=== PATIENT | female | born 1940 | race Caucasian/White ===

== ENCOUNTER 2017-04-15 12:52 | Observation (INO) | payer MEDICARE ==
[2017-04-15] MEDS ORDERED: Lopressor 25MG Tab PO ONE (13:24)
[2017-04-15] MEDS ORDERED: Zofran 4 MG/2 ML VIAL IV ONE (13:24)
[2017-04-15] MEDS ORDERED: NITRO-BID 2% UD PACKETS TOP ONE (13:24)
[2017-04-15] MEDS ORDERED: Sodium Chloride 0.9% 1000 ML 1,000 ML IV SCH (13:30)
[2017-04-15] MEDS ORDERED: Zofran 4 MG/2 ML VIAL ONE (13:31)
[2017-04-15] MEDS ORDERED: Lopressor 25MG Tab ONE (13:32)
[2017-04-15] MEDS ORDERED: Sodium Chloride 0.9% 1000 ML 1,000 ML ONE (13:32)
[2017-04-15] MEDS ORDERED: NITRO-BID 2% UD PACKETS ONE (13:32)
--- NOTE | 2017-04-15 13:32 | ERPHSYRPT ---
- History of Present Illness Time Seen by Provider: 04/15/17 12:57 Source: patient, family Exam Limitations: no limitations Patient Subjective Stated Complaint: blood pressure high at home. having a h/a and some dizziness. Triage Nursing Assessment: ambulated to room per self. skin w/d, color normal, resp easy. Physician History: peyman awoke not feeleing weel; has a non-specific VINSON; some nausea; and light headed; she has been under a lot of stress; no recent changes in meds; took meds this am; it was elevated 220;96; ususally 170 86 Timing/Duration: today, hour(s) (3), gradual onset, worse Severity: moderate Modifying Factors: Improves With: nothing Associated Symptoms: nausea, headaches, other (light headed) Allergies/Adverse Reactions: No Known Drug Allergies Allergy (Verified 04/15/17 13:13) Home Medications: Albuterol Sulfate [Proair Hfa] 8.5 gm IH Q6H PRN PRN 04/15/17 [History] Atorvastatin Calcium 10 mg PO DAILY 04/15/17 [History] Citalopram Hydrobromide 20 mg* [ceLEXa 20 MG] 10 mg PO DAILY 04/15/17 [ History] Gabapentin [Neurontin] 100 mg PO TID 04/15/17 [History] Losartan Potassium 50 mg [Cozaar 50 MG] 50 mg PO DAILY 04/15/17 [History] Meloxicam 15 mg [Meloxicam 15 MG] 15 mg PO DAILY 04/15/17 [History] Hx Tetanus, Diphtheria Vaccination/Date Given: No Hx Influenza Vaccination/Date Given: Yes Hx Pneumococcal Vaccination/Date Given: Yes - Review of Systems Constitutional: No Symptoms Eyes: No Symptoms, No Discharge, No Eye Pain, No Eye Redness Ears, Nose, & Throat: No Symptoms Respiratory: No Cough, No Dyspnea, No Wheezing Cardiac: No Chest Pain, No Palpitations, No Syncope Abdominal/Gastrointestinal: Nausea, No Abdominal Pain, No Vomiting, No Diarrhea Genitourinary Symptoms: No Symptoms Musculoskeletal: No Symptoms Skin: No Symptoms Neurological: Dizziness, Headache, No Paralysis Psychological: Anxiety, No Suicidal Ideations, No Homicidal Ideations Endocrine: No Symptoms Hematologic/Lymphatic: No Symptoms Immunological/Allergic: No Symptoms - Past Medical History Pertinent Past Medical History: Yes Cardiac History: High Cholesterol, Hypertension Respiratory History: COPD, Pneumonia Musculoskeletal History: Arthritis GI Medical History: Gallbladder Disease - Past Surgical History Past Surgical History: Yes Gastrointestinal: Cholecystectomy - Social History Smoking Status: Former smoker Exposure to second hand smoke: No Alcohol Use: None Drug Use: none Patient Lives Alone: No Significant Family History: heart disease, hypertension - Female History Hx Now: No - Nursing Vital Signs Nursing Vital Signs: Initial Vital Signs Temperature 97.8 F 04/15/17 12:57 Pulse Rate 83 04/15/17 12:57 Respiratory Rate 18 04/15/17 12:57 Blood Pressure 228/92 04/15/17 12:57 O2 Sat by Pulse Oximetry 95 04/15/17 12:57 Pain Scale Pain Intensity 0 - Physical Exam General Appearance: mild distress, alert, obese Eye Exam: PERRL/EOMI, eyes nml inspection, other (no papiledema), No photophobia Ears, Nose, Throat Exam: normal ENT inspection, TMs normal, pharynx normal, moist mucous membranes Neck Exam: normal inspection, non-tender, supple, full range of motion, No meningismus, No JVD Respiratory Exam: normal breath sounds, lungs clear, airway intact, No chest tenderness, No respiratory distress Cardiovascular Exam: regular rate/rhythm, normal heart sounds, normal peripheral pulses, capillary refill <2 sec, No murmur, No edema Gastrointestinal/Abdomen Exam: soft, normal bowel sounds, No tenderness, No guarding, No rebound, No organomegaly Pelvic Exam: deferred Rectal Exam: deferred Back Exam: normal inspection, normal range of motion, No CVA tenderness, No vertebral tenderness, No rash Extremity Exam: normal inspection, normal range of motion, No marquis's sign, No pedal edema Neurologic Exam: alert, oriented x 3, cooperative, machine pack assembler II-XII nml as tested, normal mood/affect, nml cerebellar function, nml station & gait Skin Exam: normal color, warm, dry, No rash, No cyanosis SpO2 Interpretation: normal SpO2: 95 Oxygen Delivery: Room Air - Course Nursing assessment & vital signs reviewed: Yes EKG Interpreted by Me: RATE (82), Sinus Rhythm, NORMAL AXIS, NORMAL INTERVALS, NORMAL QRS, Non-specific ST Changes (occasional PVC; poor R wave progression V1 - V3; left ventricular hypertrophy) Rhythm Strip: Rate (82), Normal Sinus Rhythm - Radiology Exams Chest X-ray Interpretation: Reviewed by me, Teleradiologist Report, No Pneumonia, No Pneumothorax, Nml Heart Size, No Infiltrates, Nml Mediastinum Ordered Tests: Active Orders 24 hr Category Date Time Status Bedrest with BRP/BSC ROUTINE Activity 04/15/17 14:28 Ordered Admission/Status Order ROUTINE Care 04/15/17 14:28 Ordered Call Admit Doctor for Orders ROUTINE Care 04/15/17 14:28 Ordered Animal Physiologist STAT Care 04/15/17 13:25 Active Code Status Order ROUTINE Care 04/15/17 14:28 Ordered EKG-ER Only STAT Care 04/15/17 13:24 Active Fall Protocol ROUTINE Care 04/15/17 14:31 Ordered IV Care Q6H Care 04/15/17 14:28 Ordered IV Insertion STAT Care 04/15/17 13:24 Active Implement Chest Pain Pathway ROUTINE Care 04/15/17 14:28 Ordered Pulse Oximetry (ED) STAT Care 04/15/17 13:24 Active Alvino May ROUTINE Care 04/15/17 14:28 Ordered Telemetry ROUTINE Care 04/15/17 14:28 Ordered Weight,Daily 0600 Care 04/15/17 14:28 Ordered Cardiac Diet Diet 04/15/17 Dinner Ordered CHEST 1 VIEW (PORTABLE) Stat Exams 04/15/17 13:25 Completed CBC W DIFF Stat Lab 04/15/17 13:24 Completed CMP Stat Lab 04/15/17 13:24 Completed LIPID PROFILE AM.LAB Lab 04/16/17 04:00 Ordered NT PRO BNP Stat Lab 04/15/17 13:24 Completed PROTIME WITH INR Stat Lab 04/15/17 13:24 Completed TROPONIN Q3H Lab 04/15/17 13:30 Completed TROPONIN Q3H Lab 04/15/17 16:30 Ordered TROPONIN Q3H Lab 04/15/17 19:30 Ordered TROPONIN Q3H Lab 04/15/17 22:30 Ordered TROPONIN Q3H Lab 04/16/17 01:30 Ordered EKG Q8HX2,QAMX3,PRN RT 04/15/17 14:28 Ordered Pulse Oximetry Q4H RT 04/15/17 14:28 Ordered Transfer Order Routine Transfer 04/15/17 Ordered Medication Summary Generic Name Dose Route Start Last Admin Trade Name Freq PRN Reason Stop Dose Admin Sodium Chloride 1,000 mls @ 50 mls/hr 04/15/17 13:30 04/15/17 13:44 Sodium Chloride 0.9% 1000 Ml IV 05/15/17 13:29 50 mls/hr .Q20H NANCY Administration Discontinued Medications Generic Name Dose Route Start Last Admin Trade Name Freq PRN Reason Stop Dose Admin Lorazepam 1 mg 04/15/17 13:33 04/15/17 13:38 Ativan 1 Mg PO 04/15/17 13:34 1 mg STAT ONE Administration Lorazepam Confirm 04/15/17 13:35 Ativan 1 Mg Administered 04/15/17 13:36 Dose 1 mg .ROUTE .STK-MED ONE Metoprolol Tartrate 50 mg 04/15/17 13:24 04/15/17 13:35 Lopressor 25mg Tab PO 04/15/17 13:25 50 mg STAT ONE Administration Metoprolol Tartrate Confirm 04/15/17 13:32 Lopressor 25mg Tab Administered 04/15/17 13:33 Dose 50 mg .ROUTE .STK-MED ONE Nitroglycerin 1 gm 04/15/17 13:24 04/15/17 13:36 Nitro-Bid 2% Ud Packets TOP 04/15/17 13:25 1 gm STAT ONE Administration Nitroglycerin Confirm 04/15/17 13:32 Nitro-Bid 2% Ud Packets Administered 04/15/17 13:33 Dose 1 gm .ROUTE .STK-MED ONE Ondansetron HCl 4 mg 04/15/17 13:24 04/15/17 13:35 Zofran 4 Mg/2 Ml Vial IV 04/15/17 13:25 4 mg STAT ONE Administration Ondansetron HCl Confirm 04/15/17 13:31 Zofran 4 Mg/2 Ml Vial Administered 04/15/17 13:32 Dose 4 mg .ROUTE .STK-MED ONE Lab/Rad Data: Laboratory Result Diagrams 04/15/17 13:24 04/15/17 13:24 Laboratory Results 04/15/17 04/15/17 04/15/17 Range/Units 13:30 13:24 13:24 WBC (4.0-10.5) K/mm3 RBC (4.1-5.4) M/mm3 Hgb (12.0-16.0) gm/dl Hct (35-47) % MCV (78-100) fl MCH (26-32) pg MCHC (32-36) g/dl RDW (11.5-14.0) % Plt Count (150-450) K/mm3 MPV (6-9.5) fl Gran % (36.0-66.0) % Lymphocytes % (24.0-44.0) % Monocytes % (0.0-12.0) % Eosinophils % (0.00-5.0) % Basophils % (0.0-0.4) % Basophils # (0-0.4) INR 1.06 (0.8-3.0) Sodium 143 (136-145) mEq/L Potassium 4.1 (3.5-5.1) mEq/L Chloride 104 (98-107) mEq/L Carbon Dioxide 31.1 (21-32) mEq/L Anion Gap 12.0 (5-15) MEQ/L BUN 12 (9-20) mg/dL Creatinine 0.74 (0.55-1.30) mg/dl Estimated GFR > 60 ML/MIN Glucose 103 (70-110) MG/DL Calcium 10.4 H (8.5-10.1) mg/dL Total Bilirubin 0.40 (0.2-1.0) mg/dL AST 30 (15-37) U/L ALT 48 (12-78) U/L Alkaline Phosphatase 96 (46-116) U/L Troponin I 0.120 H* (0.000-0.056) ng/ml NT-Pro-B Natriuret Pep 908 H (0-450) pg/ml Serum Total Protein 8.1 (6.4-8.2) gm/dL Albumin 4.3 (3.4-5.0) g/dL 04/15/17 Range/Units 13:24 WBC 5.5 (4.0-10.5) K/mm3 RBC 4.94 (4.1-5.4) M/mm3 Hgb 14.7 (12.0-16.0) gm/dl Hct 45.5 (35-47) % MCV 92.1 (78-100) fl MCH 29.8 (26-32) pg MCHC 32.3 (32-36) g/dl RDW 14.1 H (11.5-14.0) % Plt Count 104 L (150-450) K/mm3 MPV 10.5 H (6-9.5) fl Gran % 64.6 (36.0-66.0) % Lymphocytes % 21.8 L (24.0-44.0) % Monocytes % 8.0 (0.0-12.0) % Eosinophils % 5.1 H (0.00-5.0) % Basophils % 0.5 (0.0-0.4) % Basophils # 0.03 (0-0.4) INR (0.8-3.0) Sodium (136-145) mEq/L Potassium (3.5-5.1) mEq/L Chloride (98-107) mEq/L Carbon Dioxide (21-32) mEq/L Anion Gap (5-15) MEQ/L BUN (9-20) mg/dL Creatinine (0.55-1.30) mg/dl Estimated GFR ML/MIN Glucose (70-110) MG/DL Calcium (8.5-10.1) mg/dL Total Bilirubin (0.2-1.0) mg/dL AST (15-37) U/L ALT (12-78) U/L Alkaline Phosphatase (46-116) U/L Troponin I (0.000-0.056) ng/ml NT-Pro-B Natriuret Pep (0-450) pg/ml Serum Total Protein (6.4-8.2) gm/dL Albumin (3.4-5.0) g/dL reviewed - Progress Progress: improved (after meds), re-examined (after meds) Progress Note: 04/15/17 13:33 family at bedside; meds given; ekg done; will monitor and recheck; labs and xr pending 04/15/17 13:52 medicated; resting comfortably with family at bedside; cbc and INR and cxr ok; EKG nsr with pvc and NSSTTW changes 04/15/17 14:10 rechecked and patietn is asymptomatic now; BP in normal range for her; Bs, renal fx and lytes all wnl; liver fx ok; troponin still pending; will monitor and recheck; she has an appt with her lmd at 330 today 04/15/17 14:26 tropoonin came back elevated at 0.120; Dr Aguirre consulted and will admit and ro non-stemi LA; patient and family notified Discussed with : Triston (consulted and will admit) Will see patient in: hospital (observation) Counseled pt/family regarding: lab results, diagnosis, need for follow-up, rad results - Departure Time of Disposition: 14:27 Departure Disposition: Observation Clinical Impression: Hypertension, Elevated troponin I level Condition: Serious Critical Care Time: Yes Critical Care Time(excluding separately billable procedures): 30-74 minutes Referrals: KORY ISBELL [Primary Care Provider] - PRANEETH AGUIRRE [ACTIVE STAFF] -
[2017-04-15] MEDS ORDERED: Ativan 1 MG PO ONE (13:33)
[2017-04-15] MEDS ORDERED: Ativan 1 MG ONE (13:35)
[2017-04-15 13:37] LABS: BASOPHIL % 0.5 % (0.0-0.4); Eosinophil % 5.1 % (0.00-5.0); Granulocytes % 64.6 % (36.0-66.0); INR 1.06 (0.8-3.0); Lymphocytes % 21.8 % (24.0-44.0); Mean Cell Volume 92.1 fl (78-100); Mean Corpuscular Hemoglobin 29.8 pg (26-32); Mean Platelet Volume 10.5 fl (6-9.5); PROTIME 11.8 SECONDS (9.95-12.35); Platelet Count 104 K/mm3 (150-450); Red Blood Count 4.94 M/mm3 (4.1-5.4); Red Cell Distribution Width 14.1 % (11.5-14.0); White Blood Count 5.5 K/mm3 (4.0-10.5)
--- NOTE | 2017-04-15 13:48 | XRAY ---
Indication: Elevated blood pressure. Comparison: October 22, 2016. Portable chest again hyperinflated. No focal infiltrate, consolidation, or large effusion. Heart is not enlarged. Vascularity normal. Bony thorax intact again with mild osteopenia and degenerative changes. Impression: Nonacute hyperinflated chest
[2017-04-15 13:51] LABS: ALBUMIN 4.3 g/dL (3.4-5.0); ALKALINE PHOSPHATASE 96 U/L (46-116); BLOOD UREA NITROGEN 12 mg/dL (9-20); CHLORIDE 104 mEq/L (98-107); Carbon Dioxide 31.1 mEq/L (21-32); Glucose 103 MG/DL (70-110); Potassium 4.1 mEq/L (3.5-5.1); SGOT/AST 30 U/L (15-37); SGPT/ALT 48 U/L (12-78); SODIUM 143 mEq/L (136-145); Total Protein 8.1 gm/dL (6.4-8.2)
[2017-04-15] MEDS ORDERED: MILK OF MAGNESIA 30 ML PO PRN (14:28)
[2017-04-15] MEDS ORDERED: Zofran 4 MG/2 ML VIAL IV PRN (14:28)
[2017-04-15] MEDS ORDERED: MAALOX ES 30 ML UNIT DOSE PO PRN (14:28)
[2017-04-15] MEDS ORDERED: TYLENOL 325 MG PO PRN (14:28)
[2017-04-15] MEDS ORDERED: Senokot-S Tablet PO PRN (14:28)
[2017-04-15] MEDS ORDERED: PROVENTIL COMMON CANISTER IH PRN (15:17)
[2017-04-15] MEDS: ENOXAPARIN SODIUM SQ SCH (16:19)
[2017-04-15] MEDS: ANTIVERT 25 MG PO SCH ×2 (18:11→23:23)
[2017-04-15] MEDS: Neurontin 100 MG PO SCH ×2 (18:11→23:22)
[2017-04-15] MEDS: Protonix 40MG Tablet PO SCH (18:11)
[2017-04-15] MEDS: NITRO-BID 2% UD PACKETS TOP SCH (21:17)
[2017-04-15] MEDS: Pepcid 20 MG PO SCH (21:21)
[2017-04-15] MEDS ORDERED: Ocuvite Tablet PO SCH (22:00)
[2017-04-15] MEDS: Lopressor 50 MG PO SCH (23:22)
[2017-04-16] MEDS: NITRO-BID 2% UD PACKETS TOP SCH ×2 (05:29→14:53)
[2017-04-16] MEDS: ENOXAPARIN SODIUM SQ SCH (08:41)
[2017-04-16] MEDS: ANTIVERT 25 MG PO SCH ×2 (08:41→14:54)
[2017-04-16] MEDS: Pepcid 20 MG PO SCH (08:41)
[2017-04-16] MEDS: Neurontin 100 MG PO SCH ×2 (08:41→14:53)
[2017-04-16] MEDS: Protonix 40MG Tablet PO SCH (08:41)
[2017-04-16] MEDS: Lopressor 50 MG PO SCH (08:41)
[2017-04-16] MEDS: Ocuvite Tablet PO SCH ×2 (08:41→11:13)
--- NOTE | 2017-04-16 09:04 | XRAY ---
Indication: Hypertension and vertigo. Two-dimensional sonogram and color Doppler imaging of the carotid arteries of the neck performed. Comparison: None Examination of the right carotid circulation demonstrates minimal eccentric soft plaquing in the common carotid artery and mild/moderate calcified plaquing at the level of the bulb extending into the origin and proximal internal and external carotid arteries. PSV of the CCA is 80 cm/s. PSV of the ICA is 111 cm/s. ICA/CCA ratio is 1.4. Normal antegrade vertebral artery flow. Examination of the left carotid circulation mild eccentric calcified plaquing in the common carotid artery and mild calcified plaquing at the level of the bulb. PSV of the CCA is 90 cm/s. PSV of the ICA is 102 cm/s. ICA/CCA ratio is 1.1. Normal antegrade vertebral artery flow. Impression: Scattered arteriosclerotic disease, right greater than left. Velocity measurements and ratios are negative for hemodynamically significant flow-limiting stenosis.
[2017-04-16] MEDS ORDERED: Zocor 10MG PO SCH (10:00)
[2017-04-16] MEDS ORDERED: ECOTRIN 81 MG PO SCH (10:00)
[2017-04-16] MEDS ORDERED: Cozaar 50 MG PO SCH (10:00)
[2017-04-16] MEDS ORDERED: Ecotrin 325 MG PO SCH (10:00)
[2017-04-16] MEDS ORDERED: ceLEXa 20 MG PO SCH (10:00)
[2017-04-16] MEDS ORDERED: NON-FORMULARY ITEM (Atorvastatin Calcium [Atorvastatin Calcium] 10 MG) PO SCH (10:00)
[2017-04-16 16:46] VITALS: BP 188/79; PULSE 60
[2017-04-16 16:55] VITALS: O2SAT 94
[2017-04-16] MEDS ORDERED: Ocuvite Tablet PO SCH (22:00)
--- NOTE | 2017-04-17 15:22 | ECHO ---
Transthoracic echocardiographic examination and color Doppler was done on 04/15/2017. INDICATION: Hypertension, hyperlipidemia, chest pains. IMPRESSION: 1) NO REGIONAL WALL MOTION ABNORMALITY. ESTIMATED GLOBAL LEFT VENTRICULAR EJECTION FRACTION BETWEEN 60 AND 70%. 2) MILD MITRAL REGURGITATION. 3) MILD AORTIC REGURGITATION. 4) MILD TRICUSPID REGURGITATION. RIGHT VENTRICULAR SYSTOLIC PRESSURE OF 39 MM OF MERCURY. 5) LEFT VENTRICULAR HYPERTROPHY. 6) LEFT VENTRICULAR DIASTOLIC DYSFUNCTION. The left ventricle is visualized and demonstrated adequate motion of all the segments. Estimated global left ventricular ejection fraction between 60-70%. There is mild left ventricular hypertrophy. The mitral valve is seen and this opens adequately. There is mild mitral regurgitation. Left atrium is normal. Tissue Doppler study of lateral mitral annulus suggestive of a left ventricular diastolic dysfunction. The aortic valve is sclerotic. The peak gradient across the aortic valve is 14 mm of Mercury. There is also associated mild aortic regurgitation. The right side chambers are within normal. There is mild tricuspid regurgitation. The right ventricular systolic pressure of 39 mm of Mercury.
--- NOTE | 2017-04-23 13:09 | SSS ---
DISCHARGE DIAGNOSES: 1) VERTIGO. 2) ACCELERATED HYPERTENSION. 3) ELEVATED TROPONINS. CONSULTS: Cardiology consultation was requested. The patient was transferred to [facility]. HISTORY: The patient is a 77 year-old white female who presented to the emergency room where initial complaints were dizziness after which the patient checked her blood pressure at home and found it to be quite high. She became quite concerned and presented herself to the emergency room where on evaluation she was found to have elevated troponins. The patient had denied any chest pain although she did report that she was having some indigestion problems off and on over the past couple of weeks. The patient is normally treated for hypertension at home. Otherwise she had concerns of gastroesophageal reflux disease. PHYSICAL EXAMINATION: Revealed a well nourished, well developed 77 year-old white female in no obvious distress. HEENT: Normocephalic, atraumatic. Pupils equal round reactive to light. Extraocular movements intact. There was no nystagmus noted. Oropharynx is pink and moist. NECK: Supple without lymphadenopathy, thyromegaly, JVD or bruits. CHEST: Clear to auscultation. HEART: Regular rate and rhythm without murmurs, rubs or gallops. ABDOMEN: Soft, nontender, nondistended without hepatosplenomegaly or masses. EXTREMITIES: Without clubbing, cyanosis or edema. NEUROLOGIC: The patient is alert and oriented x3. No focal deficits were noted. LAB DATA AND TESTS: Laboratory studies did reveal the patient to have persistently elevated troponins at approximately 0.106. There was another measured at 0.109. HOSPITAL COURSE: Cardiology consultation was requested. The tele-cardiology machine is still down. Upon consultation with the recooperer verbally, they wished for her to be transferred to [facility] for further evaluation and management with the possibility of a heart cath. The patient's symptoms of gastroesophageal reflux disease may well indicate angina problems and we agreed that they need to be more thoroughly evaluated. The patient's hypertension was managed with metoprolol and increasing her Cozaar. The patient's home medications otherwise did include atorvastatin 10 mg daily, meloxicam 15 mg a day, gabapentin 5 mg t.i.d., citalopram 10 mg a day. She uses occasional ProAir inhalers and takes Ocuvite vitamins. DISCHARGE PLANS: The patient was transferred to [facility] under the care of the recooperer for further evaluation and management.
== END 2017-04-16 17:18 | disposition short-term general hospital (02) ==
LOC: ED 12:52 → MED SURG 14:40
PROVIDERS: ADMIT Family Medicine; ATTEND Family Medicine
DX: R42 Dizziness and giddiness (principal); I10 Essential (primary) hypertension; R79.89 Other specified abnormal findings of blood chemistry; I20.0 Unstable angina
CPT/HCPCS: 36000; 36415; 71010; 80053; 80061; 83721; 83880; 84484; 85025; 85610; 93005; 93041; 93268; 93306; 93880; 94760; 96360; 96374; 99285; G0378; J1650; J2405; A9270-GY

== ENCOUNTER 2019-05-18 09:50 | Day surgery (SDC) | payer MEDICARE ==
--- NOTE | 2019-05-16 15:34 | HP ---
DATE OF SURGERY: 05/18/2019 ANTICIPATED PROCEDURE: Excision of two lesions off the side of the face. HISTORY OF PRESENT ILLNESS: The patient has two lesions both the left cheek. They are both requiring excision and presents for such. PAST MEDICAL HISTORY: Seasonal allergies. ALLERGIES: NKDA. MEDICATIONS: Multiple. PAST SURGICAL HISTORY: Heart stent. Double bypass. SOCIAL HISTORY: Negative. FAMILY HISTORY: Negative. REVIEW OF SYSTEMS: CVS: Positive. PULMONARY: Positive. GI: Negative. : Negative. PHYSICAL EXAMINATION: VITAL SIGNS: Normal. CHEST: Clear. COR: Regular. IMPRESSION: Two lesions left face. PLAN: Excision.
[~2019-05-18 09:50] MED LIST: Lactated Ringers 1,000 ML IV ONE; Sodium Chloride 0.9% 1000 ML 1,000 ML ONE; XYLOCAINE 1% HCL 20 ML MDV ONE
[2019-05-18] MEDS ORDERED: DEMEROL 50 MG IJ ONE (09:51)
[2019-05-18] MEDS ORDERED: VERSED 5 MG/5 ML IV ONE (09:51)
[2019-05-18] MEDS ORDERED: Triple Antibiotic Ointment ONE (11:37)
--- NOTE | 2019-05-18 12:10 | OP ---
SURGERY DATE/TIME: 05/18/2019 1115 PREOPERATIVE DIAGNOSIS: Two lesions in the left cheek POSTOPERATIVE DIAGNOSIS: Two lesions in the left cheek PROCEDURE: Excision and biopsy left face lesions. SURGEON: Rishabh Goel M.D. ANESTHESIA: IV. COMPLICATIONS: None. CONDITION: Stable. DESCRIPTION OF PROCEDURE: Two lesions in the left cheek an anterior more acute appearing lesion that is ulcerated and bleeding and a more granular posterior lesion. These are left hooked together en bloc so they are both a little over 1 cm each, together they are about 4 cm. Taken through 6 x 2 cm elliptical excision slightly dumbbell-shaped. This was marked. This was taken. Hemostasis obtained with electrocautery. It was taken deeply through the skin subcu and superficial fascia. It looked like it had clean margins. It was approximated with interrupted sutures #3-0 and 4-0 Prolene. Sterile ointment applied. Findings discussed with the family in the waiting room.
[2019-05-18 12:39] VITALS: O2SAT 100
[2019-05-18 13:08] VITALS: BP 120/60; PULSE 58
== END 2019-05-18 13:00 | disposition home or self-care (01) ==
LOC: SDC 09:50
PROVIDERS: ATTEND Surgery
DX: C44.319 Basal cell carcinoma of skin of other parts of face (principal)
CPT/HCPCS: J2175; J2250; A9270-GY